=== PATIENT | male | born 2000 | race Two or more races ===

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

== ENCOUNTER 2018-03-30 01:21 | Emergency (ER) | payer OTHER ==
[2018-03-30] MEDS ORDERED: IBUPROFEN 600 MG TAB PO ONE (02:07)
--- NOTE | 2018-03-30 03:26 | EDPHY ---
H & P Stated Complaint: L side tooth pain, seen dentist today, wisdom teeth in 2wk Time Seen by Provider: 03/30/18 03:23 HPI/ROS: HPI The patient presents with left-sided upper molar tooth pain which has been present for the last several days. He saw a dentist yesterday and was told that he has wisdom teeth coming in and has scheduled removal in 2 weeks. However, his pain is severe when he is trying to sleep so he has come into the emergency department. The pain is aching, moderate in severity, does not radiate. He has not had any fevers. REVIEW OF SYSTEMS Constitutional: No fever, no chills. Skin: No rashes. Neurological: No headache. PMHx: Healthy Soc Hx: College student PHYSICAL General Appearance: Alert, no distress Eyes: Pupils equal and round no pallor or injection ENT, Mouth: Mucous membranes moist, there is mild tenderness in the left upper posterior maxilla with no erythema Respiratory: Breathing comfortably Neurological: A&O, moves all extremities Skin: Warm and dry, no rashes Extremities: symmetrical, full range of motion Psychiatric: Patient is oriented X 3, there is no agitation Source: Patient Exam Limitations: No limitations - Personal History Current Tetanus/Diphtheria Vaccine: Yes Current Tetanus Diphtheria and Acellular Pertussis (TDAP): Yes - Medical/Surgical History Hx Asthma: No Hx Chronic Respiratory Disease: No Hx Diabetes: No Hx Cardiac Disease: No Hx Renal Disease: No Hx Cirrhosis: No Hx Alcoholism: No Hx HIV/AIDS: No Hx Splenectomy or Spleen Trauma: No Other PMH: denies - Social History Smoking Status: Never smoked Constitutional: Initial Vital Signs Temperature (C) 36.7 C 03/30/18 01:23 Heart Rate 62 03/30/18 01:23 Respiratory Rate 18 03/30/18 01:23 Blood Pressure 142/82 H 03/30/18 01:23 O2 Sat (%) 97 03/30/18 01:23 O2 Delivery Mode Room Air Allergies/Adverse Reactions: No Known Allergies Allergy (Verified 03/30/18 01:22) Home Medications: Medication Instructions Recorded Naproxen 500 mg PO BID #30 tablet 03/30/18 Medical Decision Making Differential Diagnosis: 17-year-old male with dental pain likely related to be emerging left upper wisdom tooth. I have recommended NSAIDs and will prescribe him Naprosyn and have encouraged him to take Tylenol around the clock. He will be discharged home. I have considered dental abscess, strep pharyngitis as well. - Data Points Medications Given: Discontinued Medications Ibuprofen (Motrin) 600 mg PO EDNOW ONE Stop: 03/30/18 02:08 Last Admin: 03/30/18 02:23 Dose: 600 mg Departure - Departure Disposition: Home, Routine, Self-Care Clinical Impression: Pain, dental Condition: Good Instructions: Toothache (ED) Referrals: [facility] [Outside] - As per Instructions Prescriptions: Naproxen 500 mg PO BID #30 tablet
[2018-03-30 03:36] VITALS: BP 132/82
== END 2018-03-30 03:37 | disposition home or self-care (01) ==
DX: K08.89 Other specified disorders of teeth and supporting structures (principal)